=== PATIENT | male | born 1960 | race Caucasian/White ===

== ENCOUNTER 2025-02-23 11:35 | Emergency (ER) | payer OTHER ==
[2025-02-23] MEDS ORDERED: Sodium Chloride 0.9% 10 ML Syringe FLUSH PRN (11:38)
[2025-02-23] MEDS ORDERED: Sodium Chloride 0.9% 2.5 ML Syringe FLUSH PRN (11:38)
[2025-02-23] MEDS ORDERED: Ketorolac 30 MG/ML SDV IVPUSH ONE (11:50)
[2025-02-23 12:10] LABS: APPEARANCE,URINE HAZY; GLUCOSE,URINE NEGATIVE (NEGATIVE); OCCULT BLOOD,URINE NEGATIVE (NEGATIVE)
[2025-02-23 12:16] LABS: EPITHELIAL CELLS,URINE OCCASIONAL (NONE-FEW)
[2025-02-23 12:36] LABS: BASOPHILS ABSOLUTE AUTO 0.05 K/uL (0.00-0.20); BASOPHILS PERCENT AUTO 0.5 % (0.0-1.0); EOSINOPHILS ABSOLUTE AUTO 0.11 K/uL (0.00-0.45); EOSINOPHILS PERCENT AUTO 1.1 % (0.0-6.0); IMMATURE GRAN ABSOLUTE AUTO 0.02 K/uL (0.00-0.05); IMMATURE GRAN PERCENT AUTO 0.2 % (0.0-0.4); LYMPHOCYTES ABSOLUTE AUTO 3.60 K/uL (1.00-4.80); LYMPHOCYTES PERCENT AUTO 34.8 % (24.0-44.0); MEAN PLATELET VOLUME 9.5 fL (9.4-12.4); MONOCYTES ABSOLUTE AUTO 0.77 K/uL (0.00-0.80); MONOCYTES PERCENT AUTO 7.4 % (0.0-8.0); NEUTROPHILS ABSOLUTE AUTO 5.80 K/uL (1.80-7.70); NEUTROPHILS PERCENT AUTO 56.0 % (41.0-71.0); NRBC ABSOLUTE 0.00 K/uL (0.00-0.02); NRBC PERCENT 0.0 /100WBC (0.0-0.2); PLATELET COUNT,PLT 227 K/uL (150-400); RED BLOOD CELL COUNT 5.10 M/uL (4.52-5.90); WHITE BLOOD CELL COUNT,WBC 10.35 K/uL (3.9-11.3)
[2025-02-23] MEDS: Ketorolac 30 MG/ML SDV IVPUSH ONE (12:36)
[2025-02-23] MEDS: Ondansetron 4 MG/2 ML SDV IVPUSH ONE (12:36)
[2025-02-23 14:05] LABS: A/G RATIO 1.1 (0.9-1.6); ALANINE AMINOTRANSFERASE,ALT 33.0 IU/L (14-63); ASPARTATE AMNIOTRANSFERASE,AST 24.0 IU/L (15-37); BILIRUBIN TOTAL 0.5 mg/dL (0.2-1.0); BLOOD UREA NITROGEN,BUN 16.0 mg/dL (7.0-18.0); CARBON DIOXIDE,CO2 24.8 mmol/L (21.0-32.0); CHLORIDE,CL 104.0 mmol/L (98-107); CREATININE 1.3 mg/dL (0.8-1.3); EST CRCL DRUG DOSING (CG) 48.7 mL/min; ESTIMATED GFR 62.0 mL/min (>60); GLUCOSE RANDOM 96.0 mg/dL (74-106); POTASSIUM,K 3.5 mmol/L (3.5-5.1); PROTEIN TOTAL,TP 7.2 g/dL (6.4-8.2); SODIUM,NA 140.0 mmol/L (136-148)
[2025-02-23] MEDS: Iopamidol 755 MG/ML 500 ML Multipack Bottle IVPUSH STA (14:25)
== END 2025-02-23 15:18 | disposition home or self-care (01) ==
LOC: MW.ED 11:35
DX: A08.4 Viral intestinal infection, unspecified (principal); R68.83 Chills (without fever); F12.90 Cannabis use, unspecified, uncomplicated; Z88.5 Allergy status to narcotic agent; Z88.8 Allergy status to other drugs, medicaments and biological substances; Z79.899 Other long term (current) drug therapy
CPT/HCPCS: 36415; 74177; 80053; 81001; 83690; 85025; 96361; 96374; 96375; 99284; J1885; J2405; J7030; Q9967; 99283; J1171